=== PATIENT | male | born 1980 | race Caucasian/White ===

== ENCOUNTER 2018-11-05 11:34 | Inpatient (IN) | payer OTHER ==
[~2018-11-05] VITALS: Ht 185.4 cm; Wt 85.1 kg
[2018-11-05 12:28] LABS: BASOPHILS ABSOLUTE AUTO 0.12 K/mm3 (0.00-0.23); BASOPHILS PERCENT AUTO 1 % (0-2); EOSINOPHILS ABSOLUTE AUTO 0.03 K/mm3 (0.00-0.68); EOSINOPHILS PERCENT AUTO 0 % (0-6); Hematocrit 36.7 % (37.0-53.0); Hemoglobin 12.6 g/dL (13.5-17.5); IMMATURE GRAN ABSOLUTE AUTO 0.09 K/mm3 (0.00-0.10); IMMATURE GRAN PERCENT AUTO 1 % (0-1); LYMPHOCYTES ABSOLUTE AUTO 1.64 K/mm3 (0.84-5.20); LYMPHOCYTES PERCENT AUTO 12 % (21-46); MONOCYTES ABSOLUTE AUTO 1.18 K/mm3 (0.16-1.47); MONOCYTES PERCENT AUTO 9 % (4-13); Mean Corpuscular HGB 31.3 pg (26.0-34.0); Mean Corpuscular HGB Conc 34.3 g/dL (31.5-36.5); Mean Corpuscular Volume 91 fL (80-100); Mean Platelet Volume 9.8 fL (9.1-12.4); NEUTROPHILS ABSOLUTE AUTO 10.68 K/mm3 (1.96-9.15); NEUTROPHILS PERCENT AUTO 78 % (41-73); Platelet Count 260 K/mm3 (150-400); RDW Coefficient Variation 14.6 % (11.7-14.2); RDW Standard Deviation 48.9 fL (35.1-46.3); Red Blood Cell Count 4.03 M/mm3 (4.30-5.90); White Blood Cell Count 13.74 K/mm3 (4.00-11.30)
[2018-11-05 12:47] LABS: Alanine Aminotransfer (ALT/SGP 33 U/L (12-78); Albumin, Blood 2.4 g/dL (3.4-5.0); Albumin/Globulin Ratio 0.6 (0.8-1.8); Alk Phos 651 U/L (50-136); Anion Gap 7 mmol/L (6-16); Aspartate Aminotrans (AST/SGOT 185 U/L (12-37); Bilirubin, Total 3.1 mg/dL (0.1-1.0); Blood Urea Nitrogen 9 mg/dL (8-24); Bun/Creatinine Ratio 16.6 (12.0-20.0); CO2, Blood 38 mmol/L (21-32); Calcium, Blood 8.4 mg/dL (8.5-10.1); Chloride, Blood 80 mmol/L (98-108); Creatinine, Blood 0.54 mg/dL (0.60-1.20); Globulin, Blood 3.9 g/dL (2.2-4.0); Glomerular Filtration Rate >60 (60-); Glucose, Blood 105 mg/dL (70-99); Potassium, Blood 2.5 mmol/L (3.5-5.5); Sodium, Blood 125 mmol/L (136-145); Total Protein, Blood 6.3 g/dL (6.4-8.2); Troponin I <0.015 ng/mL (0.000-0.040)
[2018-11-05 14:07] LABS: U Amphetamine Screen Not Detected; U Barbituate Screen Not Detected; U Benzodiazapine Screen Not Detected; U Buprenorphine Screen Not Detected; U Cannabinoids Screen DETECTED; U Cocaine Screen Not Detected; U Methadone Screen Not Detected; U Methamphetamine Screen Not Detected; U Opiates Screen Not Detected; U Oxycodone Screen Not Detected; U Phencyclidine Screen Not Detected; U Propoxyphene Screen Not Detected
--- NOTE | 2018-11-05 17:37 | NUR ---
SUMMARY Assumed care of pt upon arrival to unit from ED at 1640. Pt independently ambulated from ED gurney into bathroom, had a bowel movement, and then ambulated to bed. Pt's girlfriend at bedside. Pt states tingling to right upper leg due to abdominal swelling, stating "my belly is pushing on my hip". This RN positioned pt onto left side. Pt states he has been having low back pain due to abdominal pressure. K pad and ice packs provided. Pt to be NPO at midnight for abdominal ultrasound tomorrow. When discussing alcohol usage, pt told this RN he drinks "4 or 5 cocktails" every day. Pt states he has not gone through alcohol withdrawals before. He also states that his longest time he has gone without drinking is "a week and a half".
[2018-11-06 04:05] LABS: International Normalized Ratio 1.7; Prothrombin Time Results 17.2 Sec (9.7-11.5)
[2018-11-06 04:10] LABS: Anion Gap 8 mmol/L (6-16); Blood Urea Nitrogen 9 mg/dL (8-24); Bun/Creatinine Ratio 19.4 (12.0-20.0); CO2, Blood 36 mmol/L (21-32); Calcium, Blood 8.2 mg/dL (8.5-10.1); Chloride, Blood 85 mmol/L (98-108); Creatinine, Blood 0.47 mg/dL (0.60-1.20); Glomerular Filtration Rate >60 (60-); Glucose, Blood 91 mg/dL (70-99); Magnesium, Blood 2.1 mg/dL (1.6-2.4); Phosphorus, Blood 2.5 mg/dL (2.5-4.9); Potassium, Blood 2.6 mmol/L (3.5-5.5); Sodium, Blood 129 mmol/L (136-145)
--- NOTE | 2018-11-06 05:17 | NUR ---
SHIFT SUMMARY: PATIENT STILL ALERT AND ORIENTED BUT SEEMS TO BE BECOMING SLIGHTLY MORE FORGETFULL AND SLOW TO RESPOND, AMMONIA LEVELS THIS AM ELEVATED. X2 KRIDERS ADMINISTERED, LIBRIUM GIVEN PER ORDERS (SEE EMAR). PATIENT VSS, CALL LIGHT WITHIN REACH, BED LOW AND LOCKED WITH EXIT ALARM ON.
[2018-11-06 15:25] LABS: Percent Saturation 12.3 % (20.0-50.0)
--- NOTE | 2018-11-06 16:31 | NUR ---
The pt has been calm, cooperative, and expressing his need for librium at appropriate intervals. CIWA has been stable, well-controlled with smallest ordered dosse of Librium. Ambulatory to the bathroom for toileting, and has a good appetite. C/O of back pain related to the pressure in his abdomen. Plan is for USS guided paracentesis in the morning due to the volume of workload in imaging department, I am told.
--- NOTE | 2018-11-06 23:55 | NUR ---
TEMPERATURE CHECK 2248 HRS: ROUTINE VITALS SHOWS PT TEMP AT >101; AIDE REPORTS ROMOVED 1 BLANKET, AIMED FAN AT PT. 2318 HRS: RE-CHECK PT ORAL TEMP SHOWS 100.7, PT RESTING, REPORTS NO DISTRESS. NO FURTHER ACTION REQUIRED
[2018-11-07 03:40] LABS: BASOPHILS PERCENT AUTO 1 % (0-2); EOSINOPHILS ABSOLUTE AUTO 0.12 K/mm3 (0.00-0.68); EOSINOPHILS PERCENT AUTO 1 % (0-6); Hematocrit 35.8 % (37.0-53.0); Hemoglobin 12.1 g/dL (13.5-17.5); IMMATURE GRAN ABSOLUTE AUTO 0.05 K/mm3 (0.00-0.10); IMMATURE GRAN PERCENT AUTO 1 % (0-1); LYMPHOCYTES ABSOLUTE AUTO 1.77 K/mm3 (0.84-5.20); LYMPHOCYTES PERCENT AUTO 16 % (21-46); MONOCYTES ABSOLUTE AUTO 0.85 K/mm3 (0.16-1.47); MONOCYTES PERCENT AUTO 8 % (4-13); Mean Corpuscular HGB 31.3 pg (26.0-34.0); Mean Corpuscular HGB Conc 33.8 g/dL (31.5-36.5); Mean Corpuscular Volume 93 fL (80-100); Mean Platelet Volume 10.6 fL (9.1-12.4); NEUTROPHILS ABSOLUTE AUTO 8.04 K/mm3 (1.96-9.15); NEUTROPHILS PERCENT AUTO 74 % (41-73); Platelet Count 195 K/mm3 (150-400); RDW Coefficient Variation 15.3 % (11.7-14.2); RDW Standard Deviation 51.3 fL (35.1-46.3); Red Blood Cell Count 3.86 M/mm3 (4.30-5.90); White Blood Cell Count 10.93 K/mm3 (4.00-11.30)
[2018-11-07 03:56] LABS: International Normalized Ratio 1.71; Prothrombin Time Results 17.3 Sec (9.7-11.5)
[2018-11-07 04:02] LABS: Alanine Aminotransfer (ALT/SGP 28 U/L (12-78); Albumin, Blood 2.3 g/dL (3.4-5.0); Albumin/Globulin Ratio 0.6 (0.8-1.8); Alk Phos 624 U/L (50-136); Anion Gap 9 mmol/L (6-16); Aspartate Aminotrans (AST/SGOT 177 U/L (12-37); Bilirubin, Total 4.2 mg/dL (0.1-1.0); Blood Urea Nitrogen 12 mg/dL (8-24); Bun/Creatinine Ratio 19.9 (12.0-20.0); CO2, Blood 35 mmol/L (21-32); Calcium, Blood 7.9 mg/dL (8.5-10.1); Chloride, Blood 87 mmol/L (98-108); Globulin, Blood 3.6 g/dL (2.2-4.0); Glomerular Filtration Rate >60 (60-); Glucose, Blood 97 mg/dL (70-99); Phosphorus, Blood 1.4 mg/dL (2.5-4.9); Potassium, Blood 2.8 mmol/L (3.5-5.5); Sodium, Blood 131 mmol/L (136-145); Total Protein, Blood 5.9 g/dL (6.4-8.2)
--- NOTE | 2018-11-07 05:45 | NUR ---
SHIFT SUMMARY PATIENT WAS ALERT AND ORIENTED AT EVERY ENCOUNTER, ALTHOUGH WANTING TO SLEEP. ALL VSS. AT APPROX 1930 PT ASKED FOR LIBRIUM FOR RESTLESSNESS/TREMOR. PATIENT WAS COUNSELED TO RISKS OF OVERMEDICATION AND DECIDED ON ONE OF TWO AVAILABLE 25MG TABS. PATIENT REMAINED RESTING IN BED FOR REMAINDER OF SHIFT AND DID NOT REQUEST ANY MORE MEDICATION. PATIENT USED URINAL INDEPENDENTLY TWICE THIS SHIFT (SEE I&O); URINE APPEARS REGINE AND MODERATELY CONCENTRATED. BED BRAKES LOCKED, CALL LIGHT W/IN REACH.
--- NOTE | 2018-11-07 09:35 | NUR ---
Pt is going down in wheelchair to imaging dept for the paracentesis.
[2018-11-07 10:23] LABS: Automated BF WBC Count 0.081 K/mm3 (0-999); Body Fluid WBC Count 81 /mm3 (0-999)
[2018-11-07 10:49] LABS: Color, Body Fluid Yellow (None-Yellow); RBC Count, Body Fluid 57 /mm3 (0-0)
[2018-11-07 10:57] LABS: Total Cell Count, Body Fluid 100
--- NOTE | 2018-11-07 13:49 | NUR ---
NEW 18G STARTED TO RIGHT WRIST, 20G FROM RIGHT FA REMOVED. DRESSING PLACED. IVF RESUMED.
--- NOTE | 2018-11-07 17:12 | NUR ---
SUMMARY The pt was withdrawn, quiet, but conversant with staff. Paracentesis done today and albumin administered afterwards as ordered. Potassium Phosphate IV infusing at this time. He seems more conversant and a little bit more cheerful this afternoon while his girlfriend is here. Has had no complaints of pain or discomfort this afternoon. Ambulatory to the bathroom independently. CIWA score has been 0-4, medicated only once with Librium about 2 pm today. Last dose needed was yesterday evening.
[2018-11-08 02:07] LABS: HBSAG SCREEN Negative (Negative); HEP B CORE AB, TOT Negative (Negative); HEP C VIRUS AB <0.1 (0.0-0.9)
[2018-11-08 04:01] LABS: Hematocrit 33.6 % (37.0-53.0); Hemoglobin 11.2 g/dL (13.5-17.5); Mean Corpuscular HGB 30.6 pg (26.0-34.0); Mean Corpuscular HGB Conc 33.3 g/dL (31.5-36.5); Mean Corpuscular Volume 92 fL (80-100); Mean Platelet Volume 10.4 fL (9.1-12.4); Platelet Count 174 K/mm3 (150-400); RDW Coefficient Variation 15.4 % (11.7-14.2); Red Blood Cell Count 3.66 M/mm3 (4.30-5.90); White Blood Cell Count 9.72 K/mm3 (4.00-11.30)
[2018-11-08 04:17] LABS: International Normalized Ratio 1.57
[2018-11-08 04:19] LABS: Albumin, Blood 2.3 g/dL (3.4-5.0); Anion Gap 8 mmol/L (6-16); Blood Urea Nitrogen 9 mg/dL (8-24); Bun/Creatinine Ratio 17.9 (12.0-20.0); CO2, Blood 32 mmol/L (21-32); Calcium, Blood 7.8 mg/dL (8.5-10.1); Chloride, Blood 92 mmol/L (98-108); Glomerular Filtration Rate >60 (60-); Glucose, Blood 118 mg/dL (70-99); Magnesium, Blood 1.7 mg/dL (1.6-2.4); Phosphorus, Blood 1.5 mg/dL (2.5-4.9); Potassium, Blood 2.7 mmol/L (3.5-5.5); Sodium, Blood 132 mmol/L (136-145)
[2018-11-08 06:08] LABS: CERULOPLASMIN 36.7 mg/dL (16.0-31.0)
--- NOTE | 2018-11-08 06:40 | NUR ---
SHIFT SUMMARY PT SLEEPING IN ROOM COMFORTABLY AT THIS TIME. NO ACUTE CHANGES IN STATUS. PT REPORTS DID NOT SLEEP WELL, REPORTS TOO HOT IN ROOM. BLANKETS REMOVED AND TEMP TURNED DOWN, AND TABLE FAN PROVIDED. RESP EVEN UNLABORED ON RA W/ SATS >92%. DENIES CP, DENIES SOB. PIV SL AT THIS TIME. PT POTASSIUM LOW THIS AM, PROVIDER ORDERED ONE TIME DOSE OF PO POTASSIUM. PT RIGOBERTO WELL. CALL LIHGT IN REACH, PT IND IN ROOM.
--- NOTE | 2018-11-08 13:57 | NUR ---
The pt has continued to be withdrawn, minimally conversant. Most of the time he is in bed, darkened room, with his eyes covered with a sleeping mask or a t shirt tied over his forehead and eyes. This is also the case when he has visitors which have included his mother and his girlfriend, Trudi. HIs appetite has not been good today. He refused breakfast, and only had 2 milks and gummy bears for lunch. Yesterday he was eating much better. He did express a desire to go home, and seemed disappointed that it was unlikely to happen today.
--- NOTE | 2018-11-08 18:01 | NUR ---
1700 The pt appeared to be sleeping soundly when I entered the room. He did not intially respond to my talking to him, but when I began to take his vital signs he began to stir and respond to me. I asked if he would be able to take oral medications, and he said he would. He asked if he could have another "sleeping pill", referring to the librium for withdrawl symptoms. I explained that in the absence of any withdrawl symptoms, and given his drowsy state, it wasn't indicated at this time. CIWA score is 0. He was able to take medication by mouth, and is interested in drinking milk. Does not appear to have a big appetite today. He has been lying in bed in a darkened room all day, with a white t shirt tied around his eyes and forehead, out of bed only to use the bathroom. Provided with a recliner to relieve his back pain which he said was caused by the bed being very uncomfortable, but he did not show interest in using it today.
--- NOTE | 2018-11-08 23:06 | NUR ---
PT REFUSED MIDNIGHT VITALS. REPORTS "JUST LET ME SLEEP".
[2018-11-09 03:54] LABS: International Normalized Ratio 1.49; Prothrombin Time Results 15.2 Sec (9.7-11.5)
[2018-11-09 04:00] LABS: Alanine Aminotransfer (ALT/SGP 22 U/L (12-78); Albumin, Blood 2.1 g/dL (3.4-5.0); Albumin/Globulin Ratio 0.6 (0.8-1.8); Alk Phos 513 U/L (50-136); Anion Gap 8 mmol/L (6-16); Aspartate Aminotrans (AST/SGOT 141 U/L (12-37); Bilirubin, Total 4.8 mg/dL (0.1-1.0); Blood Urea Nitrogen 9 mg/dL (8-24); Bun/Creatinine Ratio 18.6 (12.0-20.0); CO2, Blood 31 mmol/L (21-32); Calcium, Blood 7.7 mg/dL (8.5-10.1); Chloride, Blood 93 mmol/L (98-108); Creatinine, Blood 0.48 mg/dL (0.60-1.20); Globulin, Blood 3.5 g/dL (2.2-4.0); Glomerular Filtration Rate >60 (60-); Glucose, Blood 95 mg/dL (70-99); Sodium, Blood 132 mmol/L (136-145); Total Protein, Blood 5.6 g/dL (6.4-8.2)
--- NOTE | 2018-11-09 05:30 | NUR ---
SHIFT SUMMARY PT SLEEPING IN ROOM COMFORTABLY AT THIS TIME. PT HAD NO ACUTE CHANGES IN STATUS T/O NIGHT. PT WAS IRRITABLE W/ STAFF AT START OF SHIFT D/T NOT BEING ABLE TO DC AT THIS TIME D/T LOW POSTASSIUM LEVELS. PT EDUCATED ABOUT LOW POTASSIUM LEVELS BEING DANGEROUS AND ABOUT HOW THEY CAN LEAD TO IRREGULAR HEART RHYTHYMS. PT REMAINED FLAT AFFECT, AND WITHDRAWN DURING EDUCATION AND DID NOT EXPRESS UNDERSTANDING WHEN ASKED. PT SHRUGGED SHOULDERS WHEN ASKED IF HE WOULD CONSENT TO STAYING OVERNIGHT ONE MORE NIGHT TO OBSERVE POTASSIUM LEVELS. PT REFUSED MIDNIGHT VITALS REPORTING "I JUST WANT TO SLEEP LEAVE ME ALONE PLEASE". PT DENIED CP OR SOB. RESP APPEARED EVEN UNLABORED ON RA W/ SATS >92%. CALL LIGHT IN REACH, PT IND IN ROOM.
[2018-11-09] MEDS ORDERED: Senna Plus Tab1 EACH PO (10:07)
[2018-11-09] MEDS ORDERED: POTA10T PO (10:08)
[2018-11-09] MEDS ORDERED: FURO20 PO (10:08)
[2018-11-09] MEDS ORDERED: SPIR50 PO (10:08)
[2018-11-09] MEDS ORDERED: NADO20 PO (10:08)
[2018-11-09] MEDS ORDERED: PHYTONADIONE5 MG PO (10:23)
--- NOTE | 2018-11-09 10:47 | NUR ---
DISCHARGE INSTRUCTIONS PT EDUCATED ABOUT ALL NEW MEDICATIONS, INCLUDING SIDE EFFECTS. PT REPORTED HE WANTS TO STOP DRINKING ALCOHOL, HE WAS EDUCATED TO SEEK TREATMENT THROUGH [facility] OR GO TO AA MEETINGS. INFORMATION PROVIDED TO PT. PT EDUCATED THAT HIS MEDICATIONS WERE CALLED TO HIS PHARMACY. PT DECLINED W/C ASSISTANCE OUT AND WISHED TO AMBULATE OUT. PT ALERT AND ORIENTED AT TIME OF DISCHARGE.
== END 2018-11-09 10:43 | disposition home or self-care (01) | DRG 433 ==
LOC: ER 11:34 → PCU 15:02
PROVIDERS: Emergency Medicine; Internal Medicine Gastroenterology; ADMIT Internal Medicine
PROC: 0W9G30Z Drainage of Peritoneal Cavity with Drainage Device, Percutaneous Approach (ICD-10-PCS; principal; 2018-11-07)
DX: K70.31 Alcoholic cirrhosis of liver with ascites (principal); E87.1 Hypo-osmolality and hyponatremia; F10.239 Alcohol dependence with withdrawal, unspecified; K21.9 Gastro-esophageal reflux disease without esophagitis; E87.6 Hypokalemia; E63.9 Nutritional deficiency, unspecified; K70.11 Alcoholic hepatitis with ascites; Y90.6 Blood alcohol level of 120-199 mg/100 ml
CPT/HCPCS: 36415; 49083; 74018; 74177; 76705; 80048; 80053; 80069; 82040; 82042; 82140; 82390; 82728; 83540; 83550; 83690; 83735; 84100; 84132; 84157; 84484; 85025; 85027; 85610; 86317; 86704; 86708; 86803; 87015; 87070; 87102; 87116; 87205; 87206; 87340; 88108; 89051; 96374-59; 99285-25; A9270; C9113; G0480; J3480; J7030; J7050; J7060; P9046; Q9967

== ENCOUNTER 2019-01-07 09:03 | Day surgery (SDC) | payer OTHER ==
[~2019-01-07] VITALS: Ht 185.4 cm; Wt 90.3 kg
[~2019-01-07 09:03] MED LIST: FURO20 PO; NADO20 PO; PHYTONADIONE5 MG PO; POTA10T PO; SPIR50 PO; Senna Plus Tab1 EACH PO
--- NOTE | 2019-01-07 10:09 | NUR ---
01/07/19 [id number] Liya Lima O2@10L WITH POM MASK PER DR CAMPA
[2019-01-07 11:06] LABS: BASOPHILS ABSOLUTE AUTO 0.02 K/mm3 (0.00-0.23); BASOPHILS PERCENT AUTO 1 % (0-2); EOSINOPHILS ABSOLUTE AUTO 0.25 K/mm3 (0.00-0.68); EOSINOPHILS PERCENT AUTO 7 % (0-6); Hematocrit 29.1 % (37.0-53.0); Hemoglobin 9.1 g/dL (13.5-17.5); IMMATURE GRAN PERCENT AUTO 0 % (0-1); LYMPHOCYTES ABSOLUTE AUTO 0.86 K/mm3 (0.84-5.20); LYMPHOCYTES PERCENT AUTO 23 % (21-46); MONOCYTES ABSOLUTE AUTO 0.51 K/mm3 (0.16-1.47); MONOCYTES PERCENT AUTO 14 % (4-13); Mean Corpuscular HGB 26.5 pg (26.0-34.0); Mean Corpuscular HGB Conc 31.3 g/dL (31.5-36.5); Mean Corpuscular Volume 85 fL (80-100); Mean Platelet Volume 10.9 fL (9.1-12.4); NEUTROPHILS ABSOLUTE AUTO 2.12 K/mm3 (1.96-9.15); NEUTROPHILS PERCENT AUTO 56 % (41-73); Platelet Count 76 K/mm3 (150-400); RDW Coefficient Variation 14.7 % (11.7-14.2); RDW Standard Deviation 45.1 fL (35.1-46.3); Red Blood Cell Count 3.44 M/mm3 (4.30-5.90); White Blood Cell Count 3.76 K/mm3 (4.00-11.30)
[2019-01-07 11:24] LABS: International Normalized Ratio 1.48; Prothrombin Time Results 15.1 Sec (9.7-11.5)
[2019-01-07 12:04] LABS: Alanine Aminotransfer (ALT/SGP 37 U/L (12-78); Albumin, Blood 3.2 g/dL (3.4-5.0); Albumin/Globulin Ratio 0.9 (0.8-1.8); Alk Phos 197 U/L (50-136); Anion Gap 7 mmol/L (6-16); Aspartate Aminotrans (AST/SGOT 67 U/L (12-37); Bilirubin, Total 1.8 mg/dL (0.1-1.0); Blood Urea Nitrogen 14 mg/dL (8-24); Bun/Creatinine Ratio 24.6 (12.0-20.0); CO2, Blood 24 mmol/L (21-32); Calcium, Blood 9.2 mg/dL (8.5-10.1); Chloride, Blood 104 mmol/L (98-108); Creatinine, Blood 0.57 mg/dL (0.60-1.20); Globulin, Blood 3.6 g/dL (2.2-4.0); Glomerular Filtration Rate >60 (60-); Glucose, Blood 97 mg/dL (70-99); Potassium, Blood 3.8 mmol/L (3.5-5.5); Sodium, Blood 135 mmol/L (136-145); Total Protein, Blood 6.8 g/dL (6.4-8.2)
--- NOTE | 2019-01-07 12:44 | NUR ---
01/07/19 1243 Liya Lima LATE ENTRY---BLOOD DRAW FROM IV SITE AFTER THE CASE HAD ENDED PER DR MORROW. PATIENT TOLERATED THIS FINE AND THERE WERE NO PROBLEMS. PATIENT WAS DISCHARGED IN STABLE CONDITION
== END 2019-01-07 10:30 | disposition home or self-care (01) ==
LOC: ORSCSDS 09:03
PROVIDERS: Internal Medicine Gastroenterology
PROC: 0DJ08ZZ Inspection of Upper Intestinal Tract, Via Natural or Artificial Opening Endoscopic (ICD-10-PCS; principal; 2019-01-07 10:15)
DX: K70.30 Alcoholic cirrhosis of liver without ascites (principal); Z13.810 Encounter for screening for upper gastrointestinal disorder; Z79.899 Other long term (current) drug therapy
CPT/HCPCS: 80053; 85025; 85610; J2704; J7120

== ENCOUNTER 2019-04-22 15:03 | Emergency (ER) | payer OTHER ==
[~2019-04-22] VITALS: Ht 182.9 cm; Wt 90.7 kg
[2019-04-22 16:09] LABS: BASOPHILS ABSOLUTE AUTO 0.13 K/mm3 (0.00-0.23); BASOPHILS PERCENT AUTO 2 % (0-2); EOSINOPHILS ABSOLUTE AUTO 0.12 K/mm3 (0.00-0.68); EOSINOPHILS PERCENT AUTO 2 % (0-6); Hematocrit 36.6 % (37.0-53.0); Hemoglobin 10.9 g/dL (13.5-17.5); IMMATURE GRAN ABSOLUTE AUTO 0.01 K/mm3 (0.00-0.10); IMMATURE GRAN PERCENT AUTO 0 % (0-1); LYMPHOCYTES ABSOLUTE AUTO 2.57 K/mm3 (0.84-5.20); LYMPHOCYTES PERCENT AUTO 35 % (21-46); MONOCYTES ABSOLUTE AUTO 0.64 K/mm3 (0.16-1.47); MONOCYTES PERCENT AUTO 9 % (4-13); Mean Corpuscular HGB 21.1 pg (26.0-34.0); Mean Corpuscular HGB Conc 29.8 g/dL (31.5-36.5); Mean Corpuscular Volume 71 fL (80-100); Mean Platelet Volume 8.8 fL (9.1-12.4); NEUTROPHILS ABSOLUTE AUTO 3.85 K/mm3 (1.96-9.15); NEUTROPHILS PERCENT AUTO 53 % (41-73); Platelet Count 191 K/mm3 (150-400); RDW Coefficient Variation 22.3 % (11.7-14.2); RDW Standard Deviation 55.8 fL (35.1-46.3); Red Blood Cell Count 5.17 M/mm3 (4.30-5.90); White Blood Cell Count 7.32 K/mm3 (4.00-11.30)
[2019-04-22 16:28] LABS: Alanine Aminotransfer (ALT/SGP 51 U/L (12-78); Albumin, Blood 4.3 g/dL (3.4-5.0); Alk Phos 170 U/L (50-136); Anion Gap 6 mmol/L (6-16); Aspartate Aminotrans (AST/SGOT 92 U/L (12-37); Bilirubin, Total 1.6 mg/dL (0.1-1.0); Blood Urea Nitrogen 8 mg/dL (8-24); Bun/Creatinine Ratio 15.9 (12.0-20.0); CO2, Blood 29 mmol/L (21-32); Calcium, Blood 9.3 mg/dL (8.5-10.1); Chloride, Blood 106 mmol/L (98-108); Globulin, Blood 4.3 g/dL (2.2-4.0); Glomerular Filtration Rate >60 (60-); Glucose, Blood 98 mg/dL (70-99); Potassium, Blood 3.5 mmol/L (3.5-5.5); Sodium, Blood 141 mmol/L (136-145); Total Protein, Blood 8.6 g/dL (6.4-8.2)
[2019-04-22 16:57] LABS: U Amphetamine Screen Not Detected; U Barbituate Screen Not Detected; U Benzodiazapine Screen Not Detected; U Buprenorphine Screen Not Detected; U Cannabinoids Screen DETECTED; U Cocaine Screen Not Detected; U Methadone Screen Not Detected; U Methamphetamine Screen Not Detected; U Opiates Screen Not Detected; U Oxycodone Screen Not Detected; U Phencyclidine Screen Not Detected; U Propoxyphene Screen Not Detected
[2019-04-22 17:00] LABS: Ethanol (Alcohol), Blood, Med 307 mg/dL
[2019-04-23] MEDS ORDERED: MEN UNDER 50 M1 EACH PO (08:15)
== END 2019-04-22 17:33 | disposition left against medical advice (07) ==
LOC: ER 15:03
PROVIDERS: Physician Assistant
DX: Z53.21 Procedure and treatment not carried out due to patient leaving prior to being seen by health care provider (principal)
CPT/HCPCS: 36415; 80053; 83690; 85025; 99283; G0480

== ENCOUNTER 2019-04-23 07:52 | Emergency (ER) | payer OTHER ==
[~2019-04-23] VITALS: Ht 185.4 cm; Wt 90.3 kg
[2019-04-23] MEDS ORDERED: MEN UNDER 50 M1 EACH PO (08:15)
== END 2019-04-23 10:40 | disposition home or self-care (01) ==
LOC: ER 07:52
DX: M54.16 Radiculopathy, lumbar region (principal); F10.239 Alcohol dependence with withdrawal, unspecified; F17.200 Nicotine dependence, unspecified, uncomplicated; Z79.899 Other long term (current) drug therapy
CPT/HCPCS: 96361; 96374; 96375; 99283-25; J1885; J2405; J7030